=== PATIENT | female | born 1950 | race Caucasian/White ===

== ENCOUNTER 2021-01-09 17:07 | Outpatient (RCR) | payer MEDICARE, BC, SELFPAY ==
[2016-10-18 08:04] VITALS: BMI 25.2
== END 2021-01-09 23:59 ==
LOC: IMMUN 17:07
PROVIDERS: PCP Family Medicine; Referring Provider Family Medicine; Visit Provider Family Medicine
DX: Z23 Encounter for immunization (principal)
CPT/HCPCS: 0011A; 0012A